=== PATIENT | female | born 1975 | race Caucasian/White ===

== ENCOUNTER 2017-08-25 18:55 | Emergency (ER) | payer BC ==
[~2017-08-25] VITALS: Ht 170.2 cm; Wt 113.4 kg
[2017-08-25 19:42] VITALS: Ht 170.2 cm; Wt 113.4 kg
[2017-08-26 05:07] VITALS: BP 128/79
== END 2017-08-26 05:07 | disposition home or self-care (01) ==
LOC: ED 18:55
DX: S93.602A Unspecified sprain of left foot, initial encounter (principal); X58.XXXA Exposure to other specified factors, initial encounter; Y93.89 Activity, other specified; Y92.89 Other specified places as the place of occurrence of the external cause; Y99.8 Other external cause status
CPT/HCPCS: J2270